=== PATIENT | female | born 1960 | race Caucasian/White ===

== ENCOUNTER → 2016-10-27 | Outpatient (CLI) | payer OTHER ==
[~2016-10-27] MED LIST: ACET500T33 PO; MECL12.52 PO; MULT-208 PO; NAPR550T3 PO; POTA20TA82 PO; RANI150T2 PO; TRIA1TAB3 PO; VERA240C2 PO
--- NOTE | 2016-10-28 00:28 | PAIN ---
DATE OF SERVICE: INITIAL CONSULTATION FOR PAIN CLINIC CHIEF COMPLAINT: Low back and left lower extremity pain. HISTORY OF PRESENT ILLNESS: This is a 56-year-old female, who presents with a history of pain since mid-May 2016, occurring suddenly, but not a result of any specific injury or accident that she is aware of. Pain in the low back is radiating into the left posterior gluteus, posterior thigh, posterior knee, posterior calf, and into the foot on the left side with some tingling and numbness in her toes. The patient reports it as a sharp, stabbing, and shooting pain radiating to the left leg, tingling, intermittent in intensity, but always present. No specific injury or accident that she is aware of, but has had significant pain, worse with sitting and driving in a car, but also with changing positions from standing to sitting and vice versa. The patient reports that it awakens her from sleep occasionally, but not every night. It does not affect her bowel or bladder control. It does not affect her ability to walk significantly. She does not walk a lot during her working days. The patient reports that she has not had any previous treatments, physical therapies, chiropractic, or other modalities. She is doing some stretching on her own with her back, which she does in the morning, but it has not been helping the pain any. The patient is taking Extra Strength Tylenol as well as Naprosyn, which helps to a mild extent, and she takes enough of these mostly in the evening as the pain is worse at the end of her working day. The patient reports again riding in the car makes it worse. The patient did have an MRI scan of the lumbar spine, which she brings the results of, showing a left L5-S1 left paracentral disk bulge contacting the transitioning nerve roots and resulting in [id number] left neuroforaminal narrowing with degenerative disk disease of the spine as well. The patient reports a disability rate from 0-10, 10 being the worst, it is a 3 with family and home responsibilities, occupation, and sexual behavior, and 2 with recreation, social activity, self-care and life support activities. PAST MEDICAL HISTORY: Significant for hypertension, history of skin carcinomas, anemia, and gastroesophageal reflux. PREVIOUS SURGERIES: Include tubal ligation, tonsillectomy, and skin cancer removals. CURRENT MEDICATIONS: Include Tylenol, multivitamins, meclizine, verapamil, potassium, triamterene, Naprosyn, and Zantac ALLERGIES: The patient has no known drug allergies. FAMILY HISTORY: Significant for hypertension and type 2 diabetes. 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 REVIEW OF SYSTEMS: The patient's review of systems is positive for those items mentioned in the history of present illness. All systems were reviewed and are otherwise negative. It is complete, full, and well-documented on the patient's chart. PHYSICAL EXAMINATION: VITAL SIGNS: The patient's blood pressure is 156/98, pulse 79, respirations 20, temperature 98.2 degrees Fahrenheit, height is 5 feet 6 inches, and weight is 229 pounds. GENERAL: The patient is awake, alert, oriented, and appropriate, very pleasant demeanor. HEENT: Head shows normocephalic, atraumatic. Extraocular movements are intact and symmetrical. Oral cavity: Mucous membranes are moist and pink. Dentition is intact. NECK: Shows anterior throat supple without palpable lymphadenopathy noted. Swallow reflex is symmetrical. CHEST: Shows normal on inspection. Breath sounds were clear to auscultation bilaterally. HEART: Shows S1 and S2 clear. ABDOMEN: Soft, nontender, and nondistended. No palpable organomegaly is noted. No rebound or guarding is demonstrated. BACK: The patient's back shows spine grossly at midline. Normal-appearing thoracic kyphosis and lumbar lordotic curvature. No previous bruises, lesions, rashes, or scars are noted. Lumbar paraspinous muscle shows symmetrical with inspection and shows very mild tenderness with palpation in the lower lumbar distribution bilaterally without radiation. No trigger points, no asymmetry, and no tenderness over the spinous processes, sacrum, or sacroiliac regions. The patient shows good rotational motion, both laterally greater than 10 degrees - right and left, as well as extension greater than 10 degrees, and forward flexion 45 degrees without pain reported. The patient's lower extremities showed deep tendon reflexes 2+ in the patellar, 1+ tendocalcaneus tendons and equal. Motor exam is strong with 5/5 dorsiflexion, extension, quadriceps, and hamstring flexion and symmetrical. Peripheral pulses are 1+ - posterior tibial and dorsalis pedis pulses. No peripheral edema is noted. No clubbing, no cyanosis. Lower extremities are warm and dry to touch, equal in color and appearance. The patient's straight leg raise shows mildly positive on the left at about 40-45 degrees with a decreased knee flexion; right side is negative. Gaenslen's and Cameron's maneuvers are negative for reproduction of pain bilaterally. The patient is able to stand, stand on her toes without significant difficulty or loss of balance, and she is walking with a normal-appearing gait, not using any assistive devices for short walk in the office today. IMPRESSION: 1. This is a 56-year-old female with an approximately 6-month history of low back pain, left lower extremity pain in a radicular fashion as noted. 2. MRI scan of lumbar spine as noted. 3. History of gastroesophageal reflux. 4. Hypertension. PLAN: Options were discussed with the patient, including conservative medical management, physical therapy, and interventional techniques and she would like to pursue interventional techniques. We discussed a lumbar epidural steroid injection, using description as well as anatomical models to describe the procedure. The patient will wait for pre-authorization with her insurance provider. We will have her return in approximately 1 week for a lumbar epidural steroid injection at that time. MADAY BETHEA MD DR: ERIN/rosario JOB#: [id number] / [id number]
== END | disposition home or self-care (01) ==
LOC: PNCL 10:32
PROVIDERS: ATTEND Anesthesiology
DX: M54.5 Low back pain (principal); M79.605 Pain in left leg
CPT/HCPCS: 99214

== ENCOUNTER → 2016-11-10 | Outpatient (CLI) | payer OTHER ==
[~2016-11-10] MED LIST changes: +IOHEXOL 180 MG/ML 10 ML VIAL. ONE; +methylPREDNISolone ACETATE 40 MG/ML VIAL. ONE; +methylPREDNISolone ACETATE 80 MG/ML VIAL. ONE
--- NOTE | 2016-11-11 01:02 | PAIN ---
DATE OF SERVICE: 11/10/2016 PROGRESS NOTE FOR PAIN CLINIC DIAGNOSES: Lumbar radiculopathy with lumbar degenerative disk disease. HISTORY OF PRESENT ILLNESS: The patient is a 56-year-old female who returns for followup status post initial evaluation and preauthorization for lumbar epidural steroid injection. The patient returns today with pain in the low back and left lower extremity, mostly in the posterior gluteus, posterior thigh, posterior calf, rates at 3 on a scale of 10, 10 being the worst. It is currently 1 on a scale 10 today. The patient reports no new motor or sensory deficits, no new bowel or bladder incontinence or other complaints. It has not been awakening her from sleep at night. It has not been aggravating her as much. We tried a Medrol Dosepak after her last visit, which helped by about 50%. The patient reports pain is returning over the low back and left leg and she would like to proceed today with the injection. PHYSICAL EXAMINATION: VITAL SIGNS: The patient's blood pressure 157/93, pulse 90, respirations are 18, temperature is 98.0 degrees Fahrenheit. Height is 5 feet 6 inches, weighs 228 pounds. GENERAL: The patient is awake, alert, oriented, appropriate, very pleasant demeanor. HEENT: Head shows normocephalic, atraumatic. Extraocular movements are intact and symmetrical. Oral cavity, mucous membranes are moist and pink. Dentition is intact. NECK: Shows anterior throat supple without palpable lymphadenopathy noted. Swallow reflex is symmetrical. CHEST: Shows normal on inspection. Breath sounds are clear to auscultation bilaterally. HEART: Shows S1 and S2 clear. ABDOMEN: Soft, nontender, nondistended. BACK: Shows spine grossly midline. Lumbar paraspinous muscle shows symmetrical on inspection, with palpation shows moderately tender, but only in the lower lumbar distribution only diffusely. EXTREMITIES: Lower extremities show deep tendon reflexes 2+ in the patellar and tendo calcaneus tendons. Motor exam is strong with 5/5 dorsiflexion, extension, quadriceps and hamstring flexion equal. Options were discussed with the patient. The patient's old chart was reviewed as her current medication regimen updated, current review of systems updated today as well. We will proceed with a lumbar epidural steroid injection today with fluoroscopic guidance. Risks were again discussed including, but not limited to bleeding, infection, possibility of epidural hematoma, subsequent neurological compromise, dural puncture, headaches, spinal cord and/or nerve damage, side effects of steroid medication and poor results regarding pain control. The patient understands and wishes to proceed. The patient will return to clinic in approximately 2 weeks for followup, was counseled on return appointment, activity level and side effects to be aware of. DIAGNOSES: Lumbar radiculopathy with lumbar degenerative disk disease. PROCEDURES: Lumbar epidural steroid injection in translaminar approach at L5-S1 level using C-arm fluoroscopic guidance under sterile prep and drape using local anesthetic. MEDICATION INJECTED: 120 mg Depo-Medrol plus 10 mL preservative-free normal saline and 2 mL Isovue for contrast. CONDITION AT DISCHARGE: Stable. The patient tolerated procedure well, had no complications. MADAY BETHEA MD DR: ERIN/rosario JOB#: [id number] / [id number]
== END | disposition home or self-care (01) ==
LOC: PNCL 14:30
PROVIDERS: ATTEND Anesthesiology
DX: M51.16 Intervertebral disc disorders with radiculopathy, lumbar region (principal)
CPT/HCPCS: 62323; J1030; J1040

== ENCOUNTER → 2016-12-13 | Outpatient (CLI) | payer OTHER ==
[~2016-12-13] MED LIST changes: +NAPR-677 PO; -NAPR550T3 PO
--- NOTE | 2016-12-13 09:55 | PAIN ---
DATE OF SERVICE: 12/13/2016 PROGRESS NOTE FOR PAIN CLINIC DIAGNOSES: Lumbar radiculopathy with lumbar degenerative disk disease. HISTORY OF PRESENT ILLNESS: The patient is a 56-year-old female who returns for followup status post lumbar epidural steroid injection x 1. The patient reports about 50-60% improvement in her low back and left lower extremity pain. The patient reports no new motor or sensory deficits. She has been increasing activity with greater ease and comfort, has been more comfortable with her daily activities, still some pain in the low back and left leg, mostly in the posterior gluteus, posterior thigh, posterior calf aching and dull and tingling combination, referred as 2 on a scale of 10 at its worst. The patient reports no new motor or sensory deficits, no new bowel or bladder incontinence, very pleased with her progress. PHYSICAL EXAMINATION: VITAL SIGNS: Today, the patient's blood pressure 168/104, pulse 93, respirations 18, temperature 98.0 degrees Fahrenheit, height is 5 feet 6 inches, weight is 226 pounds. GENERAL: The patient is awake, alert, oriented, appropriate, very pleasant demeanor. HEENT: Head shows normocephalic, atraumatic. Extraocular movements are intact and symmetrical. Oral cavity, mucous membranes are moist and pink. Dentition is intact. NECK: Shows anterior throat supple without palpable lymphadenopathy noted. Swallow reflex is symmetrical. CHEST: Shows normal on inspection. Breath sounds are clear to auscultation bilaterally. HEART: Shows S1 and S2 clear. ABDOMEN: Soft, nontender, nondistended. No palpable organomegaly. No rebound or guarding demonstrated. BACK: Shows spine grossly at midline. Lumbar paraspinous muscle shows some mild tenderness with palpation, but only diffusely in the lower lumbar distribution and is symmetrical. The patient shows good rotational motion both laterally as well as extension and flexion of lumbar spine without difficulty. LOWER EXTREMITIES: Show deep tendon reflexes are 2+ in the patellar, 1+ tendo-calcaneus tendons are equal. Motor exam is strong with 5/5 dorsiflexion, extension, quadriceps and hamstring flexion and symmetrical. Options were discussed with the patient. The patient's old chart was reviewed as her current medication regimen updated. Current review of systems updated today as well. We will proceed with a second lumbar epidural steroid injection today with fluoroscopic guidance. Risks were again discussed including, but not limited to bleeding, infection, possibility of epidural hematoma, subsequent neurologic compromise, dural puncture, headaches, spinal cord and/or nerve damage, side effects of steroid medication and poor results regarding pain control. The patient understands and wishes to proceed. The patient will return to clinic in approximately 2 weeks for followup, was counseled on return appointment, activity level and side effects to be aware of. DIAGNOSIS: Lumbar radiculopathy with lumbar degenerative disk disease. PROCEDURES: Lumbar epidural steroid injection in translaminar approach at the L5-S1 level using C-arm fluoroscopic guidance under sterile prep and drape using local anesthetic. MEDICATION INJECTED: A 120 mg of Depo-Medrol plus 10 mL of preservative-free normal saline and 2 mL Isovue for contrast. CONDITION AT DISCHARGE: Stable. The patient tolerated the procedure well, had no complications. MADAY BETHEA MD DR: ERIN/rosario JOB#: [id number] / [id number]
== END | disposition home or self-care (01) ==
LOC: PNCL 07:51
PROVIDERS: ATTEND Anesthesiology
DX: M51.16 Intervertebral disc disorders with radiculopathy, lumbar region (principal)
CPT/HCPCS: 62323; J1030; J1040